=== PATIENT | male | born 1960 | race Caucasian/White ===

== ENCOUNTER → 2017-06-12 | Emergency (ER) | payer MEDICAID ==
[~2017-06-12] VITALS: Ht 177.8 cm; Wt 48.9 kg
[~2017-06-12] MED LIST: CIPR-230 PO; CYCL-1 PO; DICY10CA88 PO; LORazepam 2 mg/ml vial IV ONE; ONDA4TAB12 PO; diphenhydrAMINE 50 mg/ml inj IV ONE; glycopyrrolate 0.2mg/ml inj IV ONE; metoclopramide 5 mg/ml inj IV ONE; morphine 4 MG/ML inj SYRINge IV ONE; normal saline 1000ML IV soln IVB ONE
[2017-06-12 06:12] LABS: BASOPHILS % (AUTO) 0.1 % (0-1); EOSINOPHILS # (AUTO) 0.2 X10'3 (0-0.9); EOSINOPHILS % (AUTO) 1.5 % (0-6); HEMATOCRIT 49.9 % (42.0-52.0); LYMPHOCYTES # (AUTO) 0.3 X10'3 (1.1-4.8); LYMPHOCYTES % (AUTO) 2.5 % (21-51); MEAN CORPUSCULAR HEMOGLOBIN 30.7 PG (27.0-31.0); MEAN CORPUSCULAR HGB CONC 33.9 % (33.0-36.5); MEAN CORPUSCULAR VOLUME 90.5 FL (78-98); MEAN PLATELET VOLUME 7.2 FL (7.4-10.4); MONOCYTES # (AUTO) 0.5 X10'3 (0-0.9); MONOCYTES % (AUTO) 3.7 % (2-12); NEUTROPHILS # (AUTO) 12.9 X10'3 (1.8-7.7); NEUTROPHILS % (AUTO) 92.2 % (42-75); PLATELET COUNT 290 X10'3 (140-440); RED BLOOD COUNT 5.52 X10'6 (4.70-6.10)
[2017-06-12 06:32] LABS: ALANINE AMINOTRANSFERASE 43 U/L (12-78); ALBUMIN 4.5 G/DL (3.4-5.0); ALBUMIN/GLOBULIN RATIO 1.1 (1.1-1.5); ALKALINE PHOSPHATASE 78 IU/L (46-116); ANION GAP 14 (8-16); ASPARTATE AMINO TRANSFERASE 25 U/L (10-37); BILIRUBIN,TOTAL 0.5 MG/DL (0.1-1.0); BLOOD UREA NITROGEN 15 MG/DL (7-18); BUN/CREATININE RATIO 13.3 (5.4-32.0); CALCIUM 9.8 MG/DL (8.5-10.1); CHLORIDE 103 MMOL/L (99-107); CREATININE 1.13 MG/DL (0.60-1.10); GLUCOSE 147 MG/DL (70-104); LIPASE 124 U/L (73-393); POTASSIUM 4.1 MMOL/L (3.5-5.1); SODIUM 140 MMOL/L (135-145); TOTAL CARBON DIOXIDE 23.4 MMOL/L (24-32); TOTAL PROTEIN 8.5 G/DL (6.4-8.2); eGFR 68 ML/MIN
[2017-06-12 08:10] VITALS: BP 122/62
== END | disposition home or self-care (01) ==
LOC: ER 05:06
DX: R11.2 Nausea with vomiting, unspecified (principal); R10.13 Epigastric pain; R19.7 Diarrhea, unspecified; R68.83 Chills (without fever); G89.29 Other chronic pain; Z98.890 Other specified postprocedural states; Z79.899 Other long term (current) drug therapy
CPT/HCPCS: 36415; 74176; 80053; 83690; 85025; 96361; 96374; 96375; 99285; J1200; J2060; J2270; J2765; J3490; J7030